=== PATIENT | female | born 1960 ===

== ENCOUNTER → 2022-01-02 10:16 | Outpatient (BNVA) | payer SELFPAY | PROVIDERS: Visit Provider Family Medicine | DX: L29.9 Pruritus, unspecified (principal) | CPT/HCPCS: 88304 ==

== ENCOUNTER 2022-09-28 03:01 | Emergency (ER) | payer SELFPAY ==
--- NOTE | 2022-09-28 03:03 | W.ED.CHESTPA ---
Documented by User: Terence Howe MD 09/28/22 06:26 HPI - Chest Pain General: Chief Complaint: Chest Pain Stated Complaint: chest pain Time Seen by Provider: 09/28/22 03:03 History of Present Illness: Mr. Fuentes is a 62-year-old lady with history of tobaccoism presented to the emergency department for evaluation of chest pain. She reports onset of symptoms approximately 1 week ago without known specific provoking event. Initially mild however over the past week has become more intense and constant. Notes radiation of the jaw and left arm. Intermittent shortness of breath. Denies other typical cardiac features. Denies frequent similar episodes in the past. No other specific changes in health, exacerbating, or alleviating factors identified. Reports positive family history for early coronary artery disease. Onset (ago): day(s) Timing of current episode: constant Prior episodes: No Onset: during rest Pain location: substernal and left chest Severity: moderate Relieving factors: nothing Exacerbating factors: nothing Associated symptoms: Reports dyspnea Review of Systems General: Reports: 10 or more systems reviewed and unremarkable except in HPI and below Resp: Reports: dyspnea PFSH ED PFSH: Family History Father Diabetes Hypertension Mother Diabetes Hypertension Stroke Other Cancer Denies family history of Chronic kidney disease (CKD) Suicide Lung disease Social History Smoking and tobacco status: current every day smoker Alcohol intake: never Substance/Drug Use: never Adopted: No Household members: spouse Housing: Manufactured/Mobile home Marital status: Number of children: 2 Number of grandchildren: 3 Highest education level completed: 11th Grade service: No Current occupational status: retired Current gender identity: Female Physical Exam Const: COMMON NORMALS: alert GENERAL APPEARANCE: cooperative and well developed HENMT: COMMON NORMALS: normocephalic and atraumatic HEAD & SCALP: normocephalic and atraumatic THROAT: posterior oropharynx normal Eye: COMMON NORMALS: conjunctivae normal CONJUNCTIVA: Yes conjunctivae normal SCLERA: sclerae normal Neck/C-Spine: COMMON NORMALS: supple GENERAL: Yes trachea midline Resp: COMMON NORMALS: clear to auscultation bilaterally EFFORT & INSPECTION: Yes able to speak in complete sentences AUSCULTATION: clear to auscultation bilaterally Cardio: COMMON NORMALS: regular rate and regular rhythm RATE: regular rate RHYTHM: regular rhythm GI: COMMON NORMALS: Soft to palpation PALPATION: Yes Soft to palpation and No Tenderness to palpation present (GI) Extremity: GENERAL: Yes normal exam except as noted and No edema Neuro: COMMON NORMALS: moves all extremities SENSORIUM/ORIENTATION: Yes alert and No Orientation impaired Psych: COMMON NORMALS: mental status grossly normal and Normal thought process present THOUGHT PROCESS: Normal thought process present Course Vital Signs: Vital signs: Vital Signs Temperature 98.4 F 09/28/22 03:09 Pulse Rate 63 09/28/22 06:21 Respiratory Rate 15 09/28/22 06:21 Blood Pressure 139/78 09/28/22 06:21 Pulse Oximetry 95 09/28/22 06:21 Oxygen Delivery Me thod Room Air 09/28/22 06:21 MDM - Chest Pain Medical Decision Making 62-year-old lady with positive family history for early coronary artery disease as well as history of tobaccoism presenting to the emergency department for chest pain. Chest pain is not reproducible on exam. Patient is nontoxic. EKG notable for sinus rhythm with nonspecific QRS and ST segment abnormalities. Labs notable for no leukocytosis, normal hemoglobin, mild thrombocytopenia of unclear etiology without recent comparison. No evidence of bleeding on exam. Unremarkable electrolytes, normal renal function, initial troponin with greater than 6 hours of symptoms is negative. Chest x-ray with no lobar consolidation or pneumothorax. Patient does have mild peribronchial prominence, she has not had worsening cough or other significant respiratory symptoms other than correlating with chest discomfort. During ED course patient treated with analgesia, antiemetic, aspirin. Patient is moderate risk by heart score. Discussed results of ED evaluation with the patient including possible disposition options and risk stratification including estimated risk of major adverse cardiac events. We will proceed with in-hospital testing. Discussed with morning ED physician pending discussion with hospitalist. Medical Records I reviewed the patient's medical records. Lab Data I reviewed the patient's lab results. 09/28/22 03:44 09/28/22 03:44 Radiology Impressions Chest X-Ray 09/28/22 03:19 IMPRESSION: 1. Mild prominence of the perihilar lung markings bilaterally, see above discussion. 2. Other findings discussed above. Laboratory Results WBC 7.5 10^3/uL (4.0-10.0) 09/28/22 03:44 RBC 4.18 10^6/uL (4.1-5.3) 09/28/22 03:44 Hgb 12.4 g/dL (11.5-15.3) 09/28/22 03:44 Hct 38.6 % (37.0-47.0) 09/28/22 03:44 MCV 92.3 fl (81-99) 09/28/22 03:44 MCH 29.7 pg (28.0-34.0) 09/28/22 03:44 MCHC 32.1 g/dL (30.0-36.0) 09/28/22 03:44 RDW 12.8 % (12.1-15.1) 09/28/22 03:44 Plt Count 111 10^3/cmm (130-400) L 09/28/22 03:44 MPV 11.5 fL (7.4-10.4) H 09/28/22 03:44 Neut % (Auto) 63.0 % 09/28/22 03:44 Lymph % (Auto) 22.7 % 09/28/22 03:44 [place] % (Auto) 10.7 % 09/28/22 03:44 Eos % (Auto) 2.9 % 09/28/22 03:44 Baso % (Auto) 0.3 % 09/28/22 03:44 Neut # (Auto) 4.72 10^3/uL (1.8-7.7) 09/28/22 03:44 Lymph # (Auto) 1.7 10^3/uL (0.8-4.8) 09/28/22 03:44 [place] # (Auto) 0.8 10^3/uL (0.2-0.9) 09/28/22 03:44 Eos # (Auto) 0.2 10^3/uL (0.0-0.8) 09/28/22 03:44 Baso # (Auto) 0.0 10^3/uL (0.0-0.1) 09/28/22 03:44 Nucleated RBC % (auto) 0 % 09/28/22 03:44 Nucleated RBCs # 0.0 /100WBC 09/28/22 03:44 Sodium 140 mmol/L (136-145) 09/28/22 03:44 Potassium 3.6 mmol/L (3.5-5.1) 09/28/22 03:44 Chloride 101 mmol/L (98-107) 09/28/22 03:44 Carbon Dioxide 25 mmol/L (22-29) 09/28/22 03:44 Anion Gap 17.6 (5-19) 09/28/22 03:44 BUN 16 mg/dL (8-23) 09/28/22 03:44 Creatinine 0.9 mg/dL (0.5-0.9) 09/28/22 03:44 GFR Calculation 63.4 mL/min (90-130) L 09/28/22 03:44 Glucose 118 mg/dL (65-115) H 09/28/22 03:44 Calculated Osmolality 292 mOsm/kg (285-295) 09/28/22 03:44 Calcium 9.4 mg/dL (8.5-10.5) 09/28/22 03:44 Total Bilirubin 0.3 mg/dL (0.15-1.2) 09/28/22 03:44 AST 18 U/L (0-32) 09/28/22 03:44 ALT 12 U/L (0-33) 09/28/22 03:44 Alkaline Phosphatase 107 U/L (35-105) H 09/28/22 03:44 Troponin T Baseline 6 ng/L (0-10) 09/28/22 03:44 Troponin T 120 Minute 6.00 ng/L (0-10) 09/28/22 05:45 Delta Troponin T 0 ABS# (0-10) 09/28/22 05:45 NT-Pro-B Natriuret Pep 154 pg/mL (0-125) H 09/28/22 03:44 Total Protein 6.9 g/dL (6.6-8.7) 09/28/22 03:44 Albumin 4.0 g/dL (3.5-5.2) 09/28/22 03:44 Globulin 2.9 g/dL (1.3-4.6) 09/28/22 03:44 Lipase 45 U/L (13-60) 09/28/22 03:44 Discharge Plan Discharge Patient Disposition: Home Clinical Impression: Atypical chest pain, Hypertension Condition: Stable Prescriptions: New isosorbide mononitrate 30 mg tablet extended release 24 hr 30 mg PO DAILY Qty: 30 0RF aspirin 81 mg tablet,delayed release (DR/EC) 81 mg PO DAILY Qty: 30 0RF No Action diphenhydramine HCl [Benadryl] 25 mg capsule 25 mg PO TID PRN permethrin 5 % cream 1 applic topical Q14D Qty: 60 3RF Rx Instructions: apply second treatment 14 days after first treatment if live parasites remain Discharge Orders: Discharge Order (Routine); Ordered 09/28/22 Ordered By: Joel Krishnan Discharge ED (Routine); Ordered 09/28/22 Ordered By: Joel Krishnan Other Ambulatory Orders: Sestamibi Stress Test Request (Routine) Timeframe: 1 Week Facility: [facility] - Location: Cardiac Diagnostic Laboratory Ordered By: Joel Krishnan Patient Instructions: Opioid Safety, Pain Management Activity Restrictions/Additional Instructions: You were seen today for chest pain. Your EKGs and cardiac enzymes were negative. Recommend that you start on Imdur 30 mg daily as well as a baby aspirin daily Case management make arrangements for a Lexiscan sestamibi stress test as an outpatient. If you have any recurrence of symptoms return to the emergency room. Coding Level of Care Code ED Management Planner for Chg Fwd Documented by User: Joel Krishnan DO 09/28/22 06:47 HPI - Chest Pain General: Chief Complaint: Chest Pain Stated Complaint: chest pain Time Seen by Provider: 09/28/22 03:03 PFS ED PFSH: Family History Father Diabetes Hypertension Mother Diabetes Hypertension Stroke Other Cancer Denies family history of Chronic kidney disease (CKD) Suicide Lung disease Social History Smoking and tobacco status: current every day smoker Alcohol intake: never Substance/Drug Use: never Adopted: No Household members: spouse Housing: Manufactured/Mobile home Marital status: Number of children: 2 Number of grandchildren: 3 Highest education level completed: 11th Grade service: No Current occupational status: retired Current gender identity: Female Course Vital Signs: Vital signs: Vital Signs Temperature 98.4 F 09/28/22 03:09 Pulse Rate 63 09/28/22 06:21 Respiratory Rate 15 09/28/22 06:21 Blood Pressure 139/78 09/28/22 06:21 Pulse Oximetry 95 09/28/22 06:21 Oxygen Delivery Me thod Room Air 09/28/22 06:21 MDM - Chest Pain Medical Decision Making 62-year-old lady with positive family history for early coronary artery disease as well as history of tobaccoism presenting to the emergency department for chest pain. Chest pain is not reproducible on exam. Patient is nontoxic. EKG notable for sinus rhythm with nonspecific QRS and ST segment abnormalities. Labs notable for no leukocytosis, normal hemoglobin, mild thrombocytopenia of unclear etiology without recent comparison. No evidence of bleeding on exam. Unremarkable electrolytes, normal renal function, initial troponin with greater than 6 hours of symptoms is negative. Chest x-ray with no lobar consolidation or pneumothorax. Patient does have mild peribronchial prominence, she has not had worsening cough or other significant respiratory symptoms other than correlating with chest discomfort. During ED course patient treated with analgesia, antiemetic, aspirin. Patient is moderate risk by heart score. Discussed results of ED evaluation with the patient including possible disposition options and risk stratification including estimated risk of major adverse cardiac events. We will proceed with in-hospital testing. Discussed with morning ED physician pending discussion with hospitalist. Labs and EKG reviewed. Cardiac enzymes are negative EKG unremarkable. After further discussion patient prefers to go home. She does have elevated blood pressure reviewed her previous office visits it was slightly elevated then as well. At the time I discussed with her she was up to 155/80. We will start her on a baby aspirin Imdur 30 mg daily set her up for an outpatient Lexiscan sestamibi stress test have her follow-up with her primary care after this completed return to the emergency room if she has recurrent problems. Lab Data 09/28/22 03:44 09/28/22 03:44 Radiology Impressions Chest X-Ray 09/28/22 03:19 IMPRESSION: 1. Mild prominence of the perihilar lung markings bilaterally, see above discussion. 2. Other findings discussed above. Laboratory Results WBC 7.5 10^3/uL (4.0-10.0) 09/28/22 03:44 RBC 4.18 10^6/uL (4.1-5.3) 09/28/22 03:44 Hgb 12.4 g/dL (11.5-15.3) 09/28/22 03:44 Hct 38.6 % (37.0-47.0) 09/28/22 03:44 MCV 92.3 fl (81-99) 09/28/22 03:44 MCH 29.7 pg (28.0-34.0) 09/28/22 03:44 MCHC 32.1 g/dL (30.0-36.0) 09/28/22 03:44 RDW 12.8 % (12.1-15.1) 09/28/22 03:44 Plt Count 111 10^3/cmm (130-400) L 09/28/22 03:44 MPV 11.5 fL (7.4-10.4) H 09/28/22 03:44 Neut % (Auto) 63.0 % 09/28/22 03:44 Lymph % (Auto) 22.7 % 09/28/22 03:44 [place] % (Auto) 10.7 % 09/28/22 03:44 Eos % (Auto) 2.9 % 09/28/22 03:44 Baso % (Auto) 0.3 % 09/28/22 03:44 Neut # (Auto) 4.72 10^3/uL (1.8-7.7) 09/28/22 03:44 Lymph # (Auto) 1.7 10^3/uL (0.8-4.8) 09/28/22 03:44 [place] # (Auto) 0.8 10^3/uL (0.2-0.9) 09/28/22 03:44 Eos # (Auto) 0.2 10^3/uL (0.0-0.8) 09/28/22 03:44 Baso # (Auto) 0.0 10^3/uL (0.0-0.1) 09/28/22 03:44 Nucleated RBC % (auto) 0 % 09/28/22 03:44 Nucleated RBCs # 0.0 /100WBC 09/28/22 03:44 Sodium 140 mmol/L (136-145) 09/28/22 03:44 Potassium 3.6 mmol/L (3.5-5.1) 09/28/22 03:44 Chloride 101 mmol/L (98-107) 09/28/22 03:44 Carbon Dioxide 25 mmol/L (22-29) 09/28/22 03:44 Anion Gap 17.6 (5-19) 09/28/22 03:44 BUN 16 mg/dL (8-23) 09/28/22 03:44 Creatinine 0.9 mg/dL (0.5-0.9) 09/28/22 03:44 GFR Calculation 63.4 mL/min (90-130) L 09/28/22 03:44 Glucose 118 mg/dL (65-115) H 09/28/22 03:44 Calculated Osmolality 292 mOsm/kg (285-295) 09/28/22 03:44 Calcium 9.4 mg/dL (8.5-10.5) 09/28/22 03:44 Total Bilirubin 0.3 mg/dL (0.15-1.2) 09/28/22 03:44 AST 18 U/L (0-32) 09/28/22 03:44 ALT 12 U/L (0-33) 09/28/22 03:44 Alkaline Phosphatase 107 U/L (35-105) H 09/28/22 03:44 Troponin T Baseline 6 ng/L (0-10) 09/28/22 03:44 Troponin T 120 Minute 6.00 ng/L (0-10) 09/28/22 05:45 Delta Troponin T 0 ABS# (0-10) 09/28/22 05:45 NT-Pro-B Natriuret Pep 154 pg/mL (0-125) H 09/28/22 03:44 Total Protein 6.9 g/dL (6.6-8.7) 09/28/22 03:44 Albumin 4.0 g/dL (3.5-5.2) 09/28/22 03:44 Globulin 2.9 g/dL (1.3-4.6) 09/28/22 03:44 Lipase 45 U/L (13-60) 09/28/22 03:44 Discharge Plan Discharge Patient Disposition: Home Clinical Impression: Atypical chest pain, Hypertension Condition: Stable Prescriptions: New isosorbide mononitrate 30 mg tablet extended release 24 hr 30 mg PO DAILY Qty: 30 0RF aspirin 81 mg tablet,delayed release (DR/EC) 81 mg PO DAILY Qty: 30 0RF No Action diphenhydramine HCl [Benadryl] 25 mg capsule 25 mg PO TID PRN permethrin 5 % cream 1 applic topical Q14D Qty: 60 3RF Rx Instructions: apply second treatment 14 days after first treatment if live parasites remain Discharge Orders: Discharge Order (Routine); Ordered 09/28/22 Ordered By: Joel Krishnan Discharge ED (Routine); Ordered 09/28/22 Ordered By: Joel Krishnan Other Ambulatory Orders: Sestamibi Stress Test Request (Routine) Timeframe: 1 Week Facility: [facility] - Location: Cardiac Diagnostic Laboratory Ordered By: Joel Krishnan Patient Instructions: Opioid Safety, Pain Management Activity Restrictions/Additional Instructions: You were seen today for chest pain. Your EKGs and cardiac enzymes were negative. Recommend that you start on Imdur 30 mg daily as well as a baby aspirin daily Case management make arrangements for a Lexiscan sestamibi stress test as an outpatient. If you have any recurrence of symptoms return to the emergency room. Coding Level of Care Code ED Management Planner for Daniel Toro
[2022-09-28 03:09] VITALS: BP 173/96; PULSE 84; RESP 15; TEMP 36.9; O2SAT 94; BMI 27.8
--- NOTE | 2022-09-28 03:19 | XRR_ITS ---
PROCEDURE INFORMATION: Exam: XR Chest Exam date and time: 09/28/2022 3:23 AM Age: 62 years old Clinical indication: Chest pressure; Patient HX: C/O chest pain; Additional info: Cp TECHNIQUE: Imaging protocol: Radiologic exam of the chest. Views: 1 view. COMPARISON: No relevant prior studies available. FINDINGS: Lungs: Poor inspiration somewhat limits evaluation, especially of the lung bases. Mild prominence of the perihilar lung markings bilaterally, with slight peribronchial thickening. While nonspecific, this appearance may represent evidence for mild CHF/interstitial pulmonary edema. Some type of bronchitis/pneumonitis might also be considered. Please correlate clinically. Visible lungs otherwise appear essentially clear. Pleural spaces: No visible pneumothorax. No definite pleural fluid. Heart/Mediastinum: Heart size appears upper range of normal. Bones/joints: No significant acute finding. XR/XR chest 1V portable [id number] IMPRESSION: 1. Mild prominence of the perihilar lung markings bilaterally, see above discussion. 2. Other findings discussed above.
--- NOTE | 2022-09-28 03:19 | ECG_ITS ---
[facility] Test Date: 2022-09-28 Pat Name: Felicitas Fuentes Department: Room: Gender: Female Telemetry Tech: : 1960 Requested By: Terence Howe Order Number: [id number] Flvaia MD: Dylan Gomez M.D. Measurements Intervals [place] Rate: 74 P: 66 SC: 145 QRS: -47 QRSD: 98 T: 47 QT: 381 QTc: 424 Interpretive Statements SINUS RHYTHM POSSIBLE LEFT ATRIAL ENLARGEMENT [-0.1mV P-WAVE IN V1/V2] PATTERN CONSISTENT WITH PULMONARY DISEASE INCOMPLETE RIGHT BUNDLE BRANCH BLOCK [90+ ms QRS DURATION, TERMINAL R IN V1/V2, 40+ ms S IN I/aVL/V4/V5/V6] LEFT ANTERIOR FASCICULAR BLOCK [QRS AXIS <= -45, QR IN I, RS IN II] No previous ECG available for comparison Electronically Signed On 09-28-2022 18:38:46 CDT by Dylan Gomez M.D. [id number]
[2022-09-28] MEDS: aspirin 81 mg Chew Tablet 324 MG PO (03:33)
[2022-09-28] MEDS: ondansetron 2 mg/ML SDV 2 mL 4 MG IVP (03:34)
[2022-09-28 03:36] VITALS: RESP 16; O2SAT 96
[2022-09-28] MEDS: morphine 4 mg/mL SDV 1 mL IVP (03:36)
[2022-09-28 03:59] LABS: Basophils % 0.3 %; Eosinophils # 0.2 10^3/uL (0.0-0.8); Eosinophils % 2.9 %; Hematocrit 38.6 % (37.0-47.0); Hemoglobin 12.4 g/dL (11.5-15.3); Lymphocytes # 1.7 10^3/uL (0.8-4.8); Lymphocytes % 22.7 %; Mean Corpuscular HGB Conc 32.1 g/dL (30.0-36.0); Mean Corpuscular Hemoglobin 29.7 pg (28.0-34.0); Mean Corpuscular Volume 92.3 fl (81-99); Mean Platelet Volume 11.5 fL (7.4-10.4); Monocytes # 0.8 10^3/uL (0.2-0.9); Monocytes % 10.7 %; Neutrophils # 4.72 10^3/uL (1.8-7.7); Nucleated Red Blood Cells % 0 %; Platelet Count 111 10^3/cmm (130-400); Red Blood Count 4.18 10^6/uL (4.1-5.3); Red Cell Distribution Width 12.8 % (12.1-15.1); White Blood Count 7.5 10^3/uL (4.0-10.0)
[2022-09-28 04:11] LABS: Troponin(5th) Baseline 6 ng/L (0-10)
[2022-09-28 04:19] LABS: Alanine Aminotransferase 12 U/L (0-33); Alkaline Phosphatase 107 U/L (35-105); Anion Gap 17.6 (5-19); Aspartate Amino Transferase 18 U/L (0-32); Blood Urea Nitrogen 16 mg/dL (8-23); Calcium 9.4 mg/dL (8.5-10.5); Carbon Dioxide 25 mmol/L (22-29); Chloride 101 mmol/L (98-107); Globulin 2.9 g/dL (1.3-4.6); Glomerular Filtration Rate 63.4 mL/min (90-130); Glucose 118 mg/dL (65-115); Lipase 45 U/L (13-60); NT Pro B Type Natriuretic Pept 154 pg/mL (0-125); Osmolality Calculated 292 mOsm/kg (285-295); Potassium 3.6 mmol/L (3.5-5.1); Sodium 140 mmol/L (136-145); Total Bilirubin 0.3 mg/dL (0.15-1.2); Total Protein 6.9 g/dL (6.6-8.7)
[2022-09-28 04:48] VITALS: BP 178/89; PULSE 62; RESP 17; O2SAT 94
--- NOTE | 2022-09-28 05:19 | ECG_ITS ---
[facility] Test Date: 2022-09-28 Pat Name: Felicitas Fuentes Department: Room: Gender: Female Paper Bundler: : 1960 Requested By: Terence Howe Order Number: [id number] Flavia MD: Dylan Gomez M.D. Measurements Intervals [place] Rate: 60 P: 61 WI: 143 QRS: -60 QRSD: 101 T: 45 QT: 407 QTc: 408 Interpretive Statements SINUS RHYTHM POSSIBLE LEFT ATRIAL ENLARGEMENT [-0.1mV P-WAVE IN V1/V2] PATTERN CONSISTENT WITH PULMONARY DISEASE INCOMPLETE RIGHT BUNDLE BRANCH BLOCK [90+ ms QRS DURATION, TERMINAL R IN V1/V2, 40+ ms S IN I/aVL/V4/V5/V6] LEFT ANTERIOR FASCICULAR BLOCK [QRS AXIS <= -45, QR IN I, RS IN II] Compared to ECG 09/28/2022 03:16:13 No significant changes Electronically Signed On 09-28-2022 18:51:12 CDT by Dylan Gomez M.D. [id number]
[2022-09-28 06:17] LABS: Troponin 5 2HR Delta 0 ABS# (0-10)
[2022-09-28 06:21] VITALS: BP 139/78; PULSE 63; RESP 15; O2SAT 95
[2022-09-28 06:57] VITALS: BP 155/80; PULSE 72; O2SAT 94
--- NOTE | 2022-10-01 13:05 | DCPLANNER ---
soda fountain manager had message to schedule an outpatient stress test for patient. soda fountain manager called phone number [phone] to speak with patient to confirm that patient wanted to have the test ordered and to confirm who patient sees for primary care. soda fountain manager unable to speak with patient and unable to leave a voicemail for patient. This test was not ordered, due to watch caser not being able to speak with patient.
--- NOTE | 2022-10-01 13:07 | DCPLANNER ---
child nutrition manager called patient due to no primary care physician - no answer at this time.
== END 2022-09-28 06:56 | disposition home or self-care (01) ==
LOC: ER 06:10 → CSU 06:33 → ER 06:45
PROVIDERS: Emergency Medicine; Emergency Provider Family Medicine
DX: R07.89 Other chest pain (principal); I10 Essential (primary) hypertension; F17.210 Nicotine dependence, cigarettes, uncomplicated
CPT/HCPCS: 36415; 71045; 80053; 83690; 83880; 84484; 85025; 93005; 96374; 96375; 99285; J2270; J2405